=== PATIENT | male | born 1985 | race Asian ===

== ENCOUNTER 2018-01-20 19:54 | Emergency (ER) | payer SELFPAY ==
[~2018-01-20] VITALS: Ht 172.7 cm; Wt 90.9 kg
[~2018-01-20 19:54] MED LIST: NO HOME MEDICATIONS
[2018-01-20 19:55] VITALS: TEMP 98
[2018-01-20] MEDS ORDERED: FLEXERIL 1010 MG/TAB PO (21:27)
[2018-01-20] MEDS ORDERED: IBU600 MG PO (21:29)
[2018-01-20 21:35] VITALS: BP 134/91; PULSE 90
== END 2018-01-20 21:35 | disposition home or self-care (01) ==
LOC: COL.ER 19:54
DX: M54.41 Lumbago with sciatica, right side (principal)
CPT/HCPCS: J1885

== ENCOUNTER 2018-01-21 11:09 | Emergency (ER) | payer SELFPAY ==
[~2018-01-21] VITALS: Ht 183 cm; Wt 90.9 kg
[~2018-01-21 11:09] MED LIST changes: +FLEXERIL 1010 MG/TAB PO; +IBU600 MG PO
[2018-01-21 11:10] VITALS: TEMP 98.6
[2018-01-21 14:17] VITALS: BP 131/99; PULSE 90
== END 2018-01-21 14:17 | disposition home or self-care (01) ==
LOC: COL.ER 11:09
DX: M54.41 Lumbago with sciatica, right side (principal)
CPT/HCPCS: J1885; J2360

== ENCOUNTER 2018-01-22 04:51 | Emergency (ER) | payer SELFPAY ==
[~2018-01-22] VITALS: Ht 172.7 cm; Wt 83.2 kg
[2018-01-22 04:52] VITALS: TEMP 98.1
[2018-01-22 07:25] LABS: BASO # 0.1 (0.0-0.2); BASO % 0.8 % (0.0-2.0); EOS % 0.5 % (0-4.0); GRAN # 5.1 (1.4-6.5); GRAN % 66.7 % (42.2-75.2); HEMATOCRIT 46.8 % (42.0-52.0); HEMOGLOBIN 16.1 g/dl (13.5-18.0); LYMPH # 1.8 (1.2-3.4); LYMPH % 23.3 % (20.0-51.0); MEAN CELL VOLUME 82 fl (80.0-100.0); MEAN CORPUSCULAR HEMOGLOBIN 28 pg (27.0-31.0); MEAN CORPUSCULAR HGB CONC 34 g/dl (33.0-37.0); MEAN PLATELET VOLUME 9.3 fl (7.4-10.4); MONO # 0.7 (0.1-0.6); MONO % 8.4 % (1.7-9.3); PLATELET COUNT 294 K/mm3 (130-400); RED BLOOD COUNT 5.73 M/mm3 (4.20-5.60)
[2018-01-22 09:45] VITALS: BP 128/83; PULSE 95
== END 2018-01-22 10:09 | disposition short-term general hospital (02) ==
LOC: COL.ER 04:51
PROVIDERS: Family Medicine
DX: M51.26 Other intervertebral disc displacement, lumbar region (principal); M48.00 Spinal stenosis, site unspecified
CPT/HCPCS: J7120

== ENCOUNTER 2018-02-09 22:12 | Emergency (ER) | payer SELFPAY ==
[~2018-02-09] VITALS: Ht 183 cm; Wt 94.1 kg
[2018-02-09 22:17] VITALS: TEMP 99
[2018-02-09 23:43] LABS: COLLECTION METHOD CATHETER
[2018-02-09 23:52] LABS: PH 5 (5-8); SQUAMOUS EPITHELIAL None Seen /hpf; URINE APPEARANCE Clear; URINE BACTERIA None Seen /hpf; URINE BILIRUBIN Negative (NEGATIVE); URINE BLOOD 1+ (NEGATIVE); URINE COLOR Yellow; URINE GLUCOSE Negative (NEGATIVE); URINE KETONE Trace (NEGATIVE); URINE LEUKOCYTE ESTERASE Negative (NEGATIVE); URINE NITRATE Negative (NEGATIVE); URINE PROTEIN(semi-quant) Negative (NEGATIVE); URINE UROBILINOGEN Negative (NEGATIVE)
[2018-02-10 00:27] VITALS: BP 125/90; PULSE 95
[2018-02-10] MEDS ORDERED: ZORVOLEX35 MG (04:23)
[2018-02-10] MEDS ORDERED: FLOMAX 0.40.4 MG/CAP PO (04:23)
[2018-02-10] MEDS ORDERED: LEVAQUIN 2250 MG/TAB (04:24)
== END 2018-02-10 00:16 | disposition home or self-care (01) ==
LOC: COL.ER 22:12
PROVIDERS: Nurse Practitioner
DX: R33.9 Retention of urine, unspecified (principal); M54.9 Dorsalgia, unspecified; F17.210 Nicotine dependence, cigarettes, uncomplicated; Z79.1 Long term (current) use of non-steroidal anti-inflammatories (NSAID); Z98.890 Other specified postprocedural states

== ENCOUNTER 2018-03-11 05:41 | Emergency (ER) | payer SELFPAY ==
[~2018-03-11] VITALS: Ht 183 cm; Wt 94.1 kg
[~2018-03-11 05:41] MED LIST changes: +FLOMAX 0.40.4 MG/CAP PO; +LEVAQUIN 2250 MG/TAB; +ZORVOLEX35 MG
[2018-03-11 05:48] VITALS: TEMP 98.4
[2018-03-11 06:39] LABS: BASO # 0.1 (0.0-0.2); BASO % 0.8 % (0.0-2.0); EOS # 0.1 (0.0-0.7); EOS % 1.7 % (0-4.0); GRAN # 5.4 (1.4-6.5); GRAN % 70.6 % (42.2-75.2); HEMATOCRIT 43.4 % (42.0-52.0); HEMOGLOBIN 14.5 g/dl (13.5-18.0); LYMPH # 1.7 (1.2-3.4); LYMPH % 21.5 % (20.0-51.0); MEAN CELL VOLUME 85 fl (80.0-100.0); MEAN CORPUSCULAR HEMOGLOBIN 28 pg (27.0-31.0); MEAN CORPUSCULAR HGB CONC 33 g/dl (33.0-37.0); MEAN PLATELET VOLUME 9.5 fl (7.4-10.4); MONO # 0.4 (0.1-0.6); MONO % 5.1 % (1.7-9.3); PLATELET COUNT 253 K/mm3 (130-400); RED BLOOD COUNT 5.11 M/mm3 (4.20-5.60); REDCELL DISTRIBUTION WIDTH-CV 12.4 % (11.5-14.5)
[2018-03-11 06:52] LABS: C-REACTIVE PROTEIN 0.9 mg/dL (0.0-0.9); CALCIUM 9.3 mg/dL (8.4-10.2); CREATININE, serum 0.89 mg/dL (0.66-1.25); POTASSIUM 3.6 mmol/L (3.4-5.0)
[2018-03-11] MEDS ORDERED: VOLTAREN 50MG T50 MG PO (07:01)
[2018-03-11] MEDS ORDERED: SENOKOT S 50 MG1 TAB PO (07:01)
[2018-03-11] MEDS ORDERED: MOTRIN 600600 MG/TAB PO (07:02)
[2018-03-11 07:06] LABS: ERYTHROCYTE SEDIMENTATION RATE 7 mm/hr (0-15)
[2018-03-11 11:27] VITALS: BP 141/92; PULSE 80
== END 2018-03-11 11:36 | disposition short-term general hospital (02) ==
LOC: COL.ER 05:41
PROVIDERS: Emergency Medicine
DX: M51.17 Intervertebral disc disorders with radiculopathy, lumbosacral region (principal); G62.9 Polyneuropathy, unspecified
CPT/HCPCS: A9585; J1100

== ENCOUNTER 2018-03-27 06:00 | Emergency (ER) | payer SELFPAY ==
[~2018-03-27] VITALS: Ht 183 cm; Wt 94.1 kg
[~2018-03-27 06:00] MED LIST changes: +MOTRIN 600600 MG/TAB PO; +SENOKOT S 50 MG1 TAB PO; +VOLTAREN 50MG T50 MG PO
[2018-03-27 06:05] VITALS: TEMP 98.1
[2018-03-27 07:00] LABS: BASO # 0.1 (0.0-0.2); BASO % 0.7 % (0.0-2.0); EOS # 0.3 (0.0-0.7); EOS % 2.9 % (0-4.0); GRAN % 70.1 % (42.2-75.2); HEMATOCRIT 37.1 % (42.0-52.0); HEMOGLOBIN 12.3 g/dl (13.5-18.0); LYMPH # 1.6 (1.2-3.4); LYMPH % 18.4 % (20.0-51.0); MEAN CELL VOLUME 86 fl (80.0-100.0); MEAN CORPUSCULAR HEMOGLOBIN 29 pg (27.0-31.0); MEAN CORPUSCULAR HGB CONC 33 g/dl (33.0-37.0); MEAN PLATELET VOLUME 9.1 fl (7.4-10.4); MONO # 0.6 (0.1-0.6); MONO % 7.5 % (1.7-9.3); PLATELET COUNT 295 K/mm3 (130-400)
[2018-03-27 07:13] LABS: COLLECTION METHOD CATHETER
[2018-03-27 07:18] LABS: ALBUMIN 4.1 gm/dL (3.5-5.0); BILIRUBIN,TOTAL 0.4 mg/dL (0.0-1.0); C-REACTIVE PROTEIN 2.8 mg/dL (0.0-0.9); CALCIUM 9.3 mg/dL (8.4-10.2); CREATININE, serum 0.87 mg/dL (0.66-1.25); POTASSIUM 3.8 mmol/L (3.4-5.0); TOTAL PROTEIN 7.3 gm/dL (6.4-8.2)
[2018-03-27 07:20] LABS: MUCOUS Present /lpf; PH 5 (5-8); SQUAMOUS EPITHELIAL None Seen /hpf; URINE APPEARANCE Clear; URINE BACTERIA None Seen /hpf; URINE BILIRUBIN Negative (NEGATIVE); URINE BLOOD Negative (NEGATIVE); URINE COLOR Yellow; URINE GLUCOSE Negative (NEGATIVE); URINE KETONE Negative (NEGATIVE); URINE LEUKOCYTE ESTERASE Trace (NEGATIVE); URINE NITRATE Positive (NEGATIVE); URINE PROTEIN(semi-quant) Negative (NEGATIVE); URINE RBC 0-2 /hpf; URINE UROBILINOGEN Negative (NEGATIVE)
[2018-03-27 07:24] LABS: ERYTHROCYTE SEDIMENTATION RATE 43 mm/hr (0-15)
[2018-03-27] MEDS ORDERED: CEPHALEXIN500 M1 PO (08:47)
[2018-03-27 10:59] VITALS: BP 122/80; PULSE 78
== END 2018-03-27 11:33 | disposition home or self-care (01) ==
LOC: COL.ER 06:00
PROVIDERS: Emergency Medicine
DX: M54.5 Low back pain (principal); Z98.890 Other specified postprocedural states
CPT/HCPCS: J0696; J1170; J2405; J7030

== ENCOUNTER 2018-03-29 09:42 | Emergency (ER) | payer SELFPAY ==
[~2018-03-29] VITALS: Ht 183 cm; Wt 94.1 kg
[~2018-03-29 09:42] MED LIST changes: +CEPHALEXIN500 M1 PO
[2018-03-29 09:43] VITALS: BP 113/71; TEMP 97.5
[2018-03-29 13:57] VITALS: PULSE 72
[2018-03-29] MEDS ORDERED: NORCO 325 MG-51 TAB PO (14:02)
== END 2018-03-29 14:10 | disposition home or self-care (01) ==
LOC: COL.ER 09:42
DX: Z48.01 Encounter for change or removal of surgical wound dressing (principal); G89.18 Other acute postprocedural pain; Z79.1 Long term (current) use of non-steroidal anti-inflammatories (NSAID)

== ENCOUNTER 2018-04-06 06:14 | Emergency (ER) | payer SELFPAY ==
[~2018-04-06] VITALS: Ht 183 cm; Wt 94.1 kg
[~2018-04-06 06:14] MED LIST changes: +NORCO 325 MG-51 TAB PO
[2018-04-06 06:15] VITALS: TEMP 96.8
[2018-04-06] MEDS ORDERED: TYLENOL 500MG500 MG PO (06:22)
[2018-04-06 07:23] LABS: BASO # 0.1 (0.0-0.2); BASO % 0.7 % (0.0-2.0); EOS # 0.2 (0.0-0.7); EOS % 3.1 % (0-4.0); GRAN # 4.2 (1.4-6.5); GRAN % 62.5 % (42.2-75.2); LYMPH # 1.7 (1.2-3.4); LYMPH % 24.7 % (20.0-51.0); MEAN CELL VOLUME 87 fl (80.0-100.0); MEAN CORPUSCULAR HEMOGLOBIN 28 pg (27.0-31.0); MEAN CORPUSCULAR HGB CONC 32 g/dl (33.0-37.0); MEAN PLATELET VOLUME 8.9 fl (7.4-10.4); MONO # 0.6 (0.1-0.6); MONO % 8.7 % (1.7-9.3); PLATELET COUNT 319 K/mm3 (130-400); RED BLOOD COUNT 4.25 M/mm3 (4.20-5.60); REDCELL DISTRIBUTION WIDTH-CV 12.7 % (11.5-14.5)
[2018-04-06 07:36] LABS: C-REACTIVE PROTEIN 5.4 mg/dL (0.0-0.9); CALCIUM 9.2 mg/dL (8.4-10.2); CREATININE, serum 0.74 mg/dL (0.66-1.25); POTASSIUM 3.5 mmol/L (3.4-5.0)
[2018-04-06 07:54] LABS: ERYTHROCYTE SEDIMENTATION RATE 33 mm/hr (0-15)
[2018-04-06 08:52] LABS: COLLECTION METHOD CATHETER
[2018-04-06 09:00] LABS: MUCOUS Present /lpf; PH 5 (5-8); SQUAMOUS EPITHELIAL None Seen /hpf; URINE APPEARANCE Clear; URINE BACTERIA None Seen /hpf; URINE BILIRUBIN Negative (NEGATIVE); URINE BLOOD Negative (NEGATIVE); URINE COLOR Yellow; URINE GLUCOSE Negative (NEGATIVE); URINE KETONE Negative (NEGATIVE); URINE LEUKOCYTE ESTERASE Negative (NEGATIVE); URINE NITRATE Negative (NEGATIVE); URINE PROTEIN(semi-quant) Negative (NEGATIVE); URINE RBC 0-2 /hpf; URINE UROBILINOGEN Negative (NEGATIVE)
[2018-04-06 10:26] VITALS: BP 119/85; PULSE 103
== END 2018-04-06 10:27 | disposition home or self-care (01) ==
LOC: COL.ER 06:14
PROVIDERS: Emergency Medicine
DX: G89.18 Other acute postprocedural pain (principal); M54.5 Low back pain; Z98.890 Other specified postprocedural states
CPT/HCPCS: G8978-GP; G8979-GP; J3010

== ENCOUNTER 2018-04-06 13:22 | Observation (INO) | payer SELFPAY ==
[~2018-04-06] VITALS: Ht 172.7 cm; Wt 89.1 kg
[~2018-04-06 13:22] MED LIST changes: +TYLENOL 500MG500 MG PO
[2018-04-06 16:41] VITALS: BP 110/70; PULSE 84; TEMP 97.5
[2018-04-06 18:59] VITALS: BP 113/66; PULSE 81; TEMP 97.9
[2018-04-06 23:05] VITALS: BP 126/70; PULSE 100; TEMP 98.7
[2018-04-07 03:03] VITALS: BP 118/73; PULSE 90
[2018-04-07 03:07] VITALS: TEMP 98.2
[2018-04-07 07:55] VITALS: BP 117/77; PULSE 97; TEMP 99.2
[2018-04-07 11:39] VITALS: BP 118/76; PULSE 96; TEMP 99.1
[2018-04-07 16:53] VITALS: BP 130/71; PULSE 114; TEMP 98.4
[2018-04-07 19:45] VITALS: BP 113/61; PULSE 100; TEMP 98.5
[2018-04-08 00:17] VITALS: BP 115/72; PULSE 99; TEMP 98.6
[2018-04-08 04:51] VITALS: BP 128/73; PULSE 116; TEMP 98.5
[2018-04-08 07:08] LABS: BASO % 0.5 % (0.0-2.0); EOS # 0.2 (0.0-0.7); EOS % 2.8 % (0-4.0); GRAN # 3.7 (1.4-6.5); GRAN % 60.8 % (42.2-75.2); HEMOGLOBIN 10.6 g/dl (13.5-18.0); LYMPH # 1.7 (1.2-3.4); LYMPH % 27.5 % (20.0-51.0); MEAN CELL VOLUME 87 fl (80.0-100.0); MEAN CORPUSCULAR HEMOGLOBIN 29 pg (27.0-31.0); MEAN CORPUSCULAR HGB CONC 33 g/dl (33.0-37.0); MEAN PLATELET VOLUME 9.5 fl (7.4-10.4); MONO # 0.5 (0.1-0.6); MONO % 8.1 % (1.7-9.3); PLATELET COUNT 307 K/mm3 (130-400); RED BLOOD COUNT 3.72 M/mm3 (4.20-5.60); REDCELL DISTRIBUTION WIDTH-CV 12.5 % (11.5-14.5)
[2018-04-08 07:11] LABS: HEMATOCRIT 32.4 % (42.0-52.0)
[2018-04-08 07:13] VITALS: BP 130/70; PULSE 98; TEMP 98.7
[2018-04-08 07:17] LABS: CREATININE, serum 0.71 mg/dL (0.66-1.25); POTASSIUM 3.4 mmol/L (3.4-5.0)
[2018-04-08] MEDS ORDERED: NORCO 325 MG-51 TAB PO (11:37)
[2018-04-08] MEDS ORDERED: FLEXERIL 1010 MG/TAB PO (11:37)
[2018-04-08 12:13] VITALS: BP 118/76; PULSE 103; TEMP 98.6
== END 2018-04-08 14:58 | disposition home or self-care (01) ==
LOC: COL.ER 13:22 → MEDICAL 13:27
PROVIDERS: Physician Assistant
DX: M46.26 Osteomyelitis of vertebra, lumbar region (principal); M46.46 Discitis, unspecified, lumbar region; R33.9 Retention of urine, unspecified
CPT/HCPCS: 99222-AI; 99231-AI; A9585; G0008; G0378; G8978-GP; G8979-GP; G8987-GO; G8988-GO; J1170; J1644; J7030

== ENCOUNTER 2018-04-17 16:07 | Emergency (ER) | payer SELFPAY ==
[~2018-04-17] VITALS: Ht 183 cm; Wt 94.1 kg
[2018-04-17 16:12] VITALS: TEMP 98
[2018-04-17] MEDS ORDERED: COLACE 100100 MG/CAP PO (16:22)
[2018-04-17 16:48] LABS: BASO # 0.1 (0.0-0.2); BASO % 0.9 % (0.0-2.0); EOS # 0.2 (0.0-0.7); EOS % 1.7 % (0-4.0); GRAN # 6.6 (1.4-6.5); GRAN % 70.6 % (42.2-75.2); HEMATOCRIT 37.6 % (42.0-52.0); HEMOGLOBIN 12.7 g/dl (13.5-18.0); LYMPH # 1.8 (1.2-3.4); LYMPH % 19.1 % (20.0-51.0); MEAN CELL VOLUME 84 fl (80.0-100.0); MEAN CORPUSCULAR HEMOGLOBIN 28 pg (27.0-31.0); MEAN CORPUSCULAR HGB CONC 34 g/dl (33.0-37.0); MEAN PLATELET VOLUME 8.8 fl (7.4-10.4); MONO # 0.7 (0.1-0.6); MONO % 7.3 % (1.7-9.3); PLATELET COUNT 423 K/mm3 (130-400); RED BLOOD COUNT 4.47 M/mm3 (4.20-5.60)
[2018-04-17] MEDS ORDERED: NAPROSYN 2250 MG/TAB PO (16:53)
[2018-04-17] MEDS ORDERED: NORCO 325 MG-51 TAB PO (16:53)
[2018-04-17 17:10] LABS: C-REACTIVE PROTEIN 6.2 mg/dL (0.0-0.9); CALCIUM 9.8 mg/dL (8.4-10.2); CREATININE, serum 0.9 mg/dL (0.66-1.25); POTASSIUM 3.9 mmol/L (3.4-5.0)
[2018-04-17 17:16] LABS: COLLECTION METHOD CATHETER
[2018-04-17 17:23] LABS: MUCOUS Present /lpf; PH 7 (5-8); SQUAMOUS EPITHELIAL 0-2 /hpf; URINE APPEARANCE Hazy; URINE BACTERIA Rare /hpf; URINE BILIRUBIN Negative (NEGATIVE); URINE BLOOD 1+ (NEGATIVE); URINE COLOR Amber; URINE GLUCOSE Negative (NEGATIVE); URINE KETONE 1+ (NEGATIVE); URINE LEUKOCYTE ESTERASE 2+ (NEGATIVE); URINE NITRATE Negative (NEGATIVE); URINE PROTEIN(semi-quant) 2+ (NEGATIVE); URINE RBC 20-50 /hpf; URINE UROBILINOGEN >=4.0 mg/dL (NEGATIVE)
[2018-04-17 18:50] VITALS: BP 111/69; PULSE 104
[2018-04-18] MEDS ORDERED: CIPRO 500MG TA500 MG PO (14:52)
== END 2018-04-17 19:10 | disposition home or self-care (01) ==
LOC: COL.ER 16:07
PROVIDERS: Emergency Medicine
DX: M54.5 Low back pain (principal); Z91.14 Patient's other noncompliance with medication regimen
CPT/HCPCS: J1885; J7030

== ENCOUNTER 2018-05-04 10:32 | Emergency (ER) | payer SELFPAY ==
[~2018-05-04] VITALS: Ht 183 cm; Wt 90.9 kg
[~2018-05-04 10:32] MED LIST changes: +CIPRO 500MG TA500 MG PO; +COLACE 100100 MG/CAP PO; +NAPROSYN 2250 MG/TAB PO
[2018-05-04 10:44] VITALS: TEMP 98.2
[2018-05-04 12:10] LABS: BASO # 0.1 (0.0-0.2); BASO % 0.9 % (0.0-2.0); EOS # 0.2 (0.0-0.7); EOS % 1.4 % (0-4.0); GRAN # 8.2 (1.4-6.5); GRAN % 73.8 % (42.2-75.2); HEMATOCRIT 40.1 % (42.0-52.0); HEMOGLOBIN 12.9 g/dl (13.5-18.0); LYMPH % 17.7 % (20.0-51.0); MEAN CELL VOLUME 84 fl (80.0-100.0); MEAN CORPUSCULAR HEMOGLOBIN 27 pg (27.0-31.0); MEAN CORPUSCULAR HGB CONC 32 g/dl (33.0-37.0); MEAN PLATELET VOLUME 8.9 fl (7.4-10.4); MONO # 0.6 (0.1-0.6); MONO % 5.7 % (1.7-9.3); PLATELET COUNT 339 K/mm3 (130-400); RED BLOOD COUNT 4.78 M/mm3 (4.20-5.60); REDCELL DISTRIBUTION WIDTH-CV 12.6 % (11.5-14.5)
[2018-05-04 12:16] LABS: INR 1.1 (0.8-3.0); PROTHROMBIN TIME 12.6 SECONDS (9.7-12.8)
[2018-05-04 12:21] LABS: ALANINE AMINOTRANSFERASE 34 U/L (21-72); ALBUMIN 4.3 gm/dL (3.5-5.0); ALKALINE PHOSPHATASE 95 U/L (50-136); ANION GAP 10 mmol/L (7-16); AST,SGOT 21 U/L (15-37); BILIRUBIN,TOTAL 0.8 mg/dL (0.0-1.0); BLOOD UREA NITROGEN 20 mg/dL (9-20); CARBON DIOXIDE 28 mmol/L (22-30); CHLORIDE 105 mmol/L (98-107); CREATININE, serum 0.91 mg/dL (0.66-1.25); GLUCOSE 97 mg/dL (74-106); POTASSIUM 3.5 mmol/L (3.4-5.0); SODIUM 142 mmol/L (137-145)
[2018-05-04 12:33] LABS: TROPONIN-I < 0.012 ng/mL (0.000-0.034)
[2018-05-04] MEDS ORDERED: OMNICEF 300MG300 MG PO (14:07)
[2018-05-04 14:23] LABS: COLLECTION METHOD CATHETER
[2018-05-04 14:34] LABS: MUCOUS Present /lpf; PH 5 (5-8); SQUAMOUS EPITHELIAL 0-2 /hpf; URINE APPEARANCE Clear; URINE BACTERIA None Seen /hpf; URINE BILIRUBIN Negative (NEGATIVE); URINE BLOOD 3+ (NEGATIVE); URINE COLOR Yellow; URINE GLUCOSE Negative (NEGATIVE); URINE KETONE 1+ (NEGATIVE); URINE LEUKOCYTE ESTERASE 2+ (NEGATIVE); URINE NITRATE Negative (NEGATIVE); URINE PROTEIN(semi-quant) Negative (NEGATIVE); URINE RBC >50 /hpf; URINE UROBILINOGEN Negative (NEGATIVE); URINE WBC >50 /hpf
[2018-05-04 14:41] VITALS: BP 137/92; PULSE 110
== END 2018-05-04 14:50 | disposition home or self-care (01) ==
LOC: COL.ER 10:32
PROVIDERS: Emergency Medicine
DX: R00.0 Tachycardia, unspecified (principal); N39.0 Urinary tract infection, site not specified
CPT/HCPCS: A4216; J0696; J7030; Q9967

== ENCOUNTER 2018-05-23 03:39 | Emergency (ER) | payer SELFPAY ==
[~2018-05-23] VITALS: Ht 183 cm; Wt 90.9 kg
[~2018-05-23 03:39] MED LIST changes: +OMNICEF 300MG300 MG PO
[2018-05-23 04:39] LABS: BASO % 0.1 % (0.0-2.0); EOS # 0.1 (0.0-0.7); EOS % 0.9 % (0-4.0); GRAN # 5.5 (1.4-6.5); GRAN % 69.3 % (42.2-75.2); HEMATOCRIT 38.1 % (42.0-52.0); HEMOGLOBIN 12.5 g/dl (13.5-18.0); LYMPH # 1.7 (1.2-3.4); LYMPH % 21.5 % (20.0-51.0); MEAN CELL VOLUME 82 fl (80.0-100.0); MEAN CORPUSCULAR HEMOGLOBIN 27 pg (27.0-31.0); MEAN CORPUSCULAR HGB CONC 33 g/dl (33.0-37.0); MEAN PLATELET VOLUME 9.5 fl (7.4-10.4); MONO # 0.6 (0.1-0.6); MONO % 7.9 % (1.7-9.3); PLATELET COUNT 260 K/mm3 (130-400); RED BLOOD COUNT 4.66 M/mm3 (4.20-5.60)
[2018-05-23 04:55] LABS: COLLECTION METHOD CATHETER
[2018-05-23 04:57] LABS: ALBUMIN 4.2 gm/dL (3.5-5.0); BILIRUBIN,TOTAL 0.6 mg/dL (0.0-1.0); C-REACTIVE PROTEIN 5.1 mg/dL (0.0-0.9); CALCIUM 9.1 mg/dL (8.4-10.2); CREATININE, serum 0.98 mg/dL (0.66-1.25); MAGNESIUM 1.5 mg/dL (1.6-2.3); POTASSIUM 3.5 mmol/L (3.4-5.0); TOTAL PROTEIN 7.6 gm/dL (6.4-8.2)
[2018-05-23] MEDS ORDERED: COLACE 100100 MG/CAP PO (05:04)
[2018-05-23] MEDS ORDERED: BACTRIM DS 8001 TAB PO (05:04)
[2018-05-23 05:12] LABS: MUCOUS Present /lpf; PH 6 (5-8); SQUAMOUS EPITHELIAL None Seen /hpf; URINE APPEARANCE Clear; URINE BACTERIA None Seen /hpf; URINE BILIRUBIN Negative (NEGATIVE); URINE BLOOD Negative (NEGATIVE); URINE COLOR Yellow; URINE GLUCOSE Negative (NEGATIVE); URINE KETONE Negative (NEGATIVE); URINE LEUKOCYTE ESTERASE Negative (NEGATIVE); URINE NITRATE Negative (NEGATIVE); URINE PROTEIN(semi-quant) Negative (NEGATIVE); URINE RBC 0-2 /hpf; URINE UROBILINOGEN Negative (NEGATIVE)
[2018-05-23 07:44] VITALS: BP 112/67; PULSE 98; TEMP 96.8
== END 2018-05-23 08:20 | disposition home or self-care (01) ==
LOC: COL.ER 03:39
PROVIDERS: Emergency Medicine
DX: R53.81 Other malaise (principal); G83.4 Cauda equina syndrome; Z98.890 Other specified postprocedural states
CPT/HCPCS: J1885; J3475; J7030

== ENCOUNTER 2018-09-03 10:47 | Emergency (ER) | payer SELFPAY ==
[~2018-09-03] VITALS: Ht 183 cm; Wt 90.9 kg
[~2018-09-03 10:47] MED LIST changes: +BACTRIM DS 8001 TAB PO
[2018-09-03 10:48] VITALS: TEMP 97.2
[2018-09-03 12:47] VITALS: BP 129/91; PULSE 79
== END 2018-09-03 12:52 | disposition home or self-care (01) ==
LOC: COL.ER 10:47
DX: R33.9 Retention of urine, unspecified (principal)

== ENCOUNTER 2019-05-06 01:17 | Emergency (ER) | payer SELFPAY ==
[~2019-05-06] VITALS: Ht 183 cm; Wt 90.9 kg
[2019-05-06 02:28] LABS: COLLECTION METHOD IN
[2019-05-06 02:33] LABS: MUCOUS Present /lpf; PH 5 (5-8); SQUAMOUS EPITHELIAL None Seen /hpf; URINE APPEARANCE Clear; URINE BACTERIA Rare /hpf; URINE BILIRUBIN Negative (NEGATIVE); URINE BLOOD 3+ (NEGATIVE); URINE COLOR Yellow; URINE GLUCOSE Negative (NEGATIVE); URINE KETONE Negative (NEGATIVE); URINE LEUKOCYTE ESTERASE 1+ (NEGATIVE); URINE NITRATE Negative (NEGATIVE); URINE PROTEIN(semi-quant) Negative (NEGATIVE); URINE RBC >50 /hpf; URINE UROBILINOGEN Negative (NEGATIVE)
[2019-05-06] MEDS ORDERED: DULCOLAX STOOL100 MG PO (02:44)
[2019-05-06] MEDS ORDERED: CIPRO 500MG TA500 MG PO (02:54)
[2019-05-06 03:00] VITALS: BP 136/101; PULSE 98; TEMP 98.1
[2019-05-08] MEDS ORDERED: MACRODANTIN100 PO (13:23)
== END 2019-05-06 03:10 | disposition home or self-care (01) ==
LOC: COL.ER 01:17
PROVIDERS: Emergency Medicine
DX: N39.0 Urinary tract infection, site not specified (principal)

== ENCOUNTER 2019-11-16 09:36 | Emergency (ER) | payer SELFPAY ==
[~2019-11-16] VITALS: Ht 183 cm; Wt 95.5 kg
[~2019-11-16 09:36] MED LIST changes: +DULCOLAX STOOL100 MG PO; +MACRODANTIN100 PO
[2019-11-16 09:39] VITALS: TEMP 98.1
[2019-11-16 10:21] LABS: BASO # 0.1 (0.0-0.2); BASO % 0.9 % (0.0-2.0); EOS # 0.1 (0.0-0.7); GRAN # 8.5 (1.4-6.5); GRAN % 81.5 % (42.2-75.2); HEMATOCRIT 48.5 % (42.0-52.0); HEMOGLOBIN 16.5 g/dl (13.5-18.0); LYMPH # 1.3 (1.2-3.4); LYMPH % 12.5 % (20.0-51.0); MEAN CELL VOLUME 84 fl (80.0-100.0); MEAN CORPUSCULAR HEMOGLOBIN 29 pg (27.0-31.0); MEAN CORPUSCULAR HGB CONC 34 g/dl (33.0-37.0); MEAN PLATELET VOLUME 9.2 fl (7.4-10.4); MONO # 0.4 (0.1-0.6); MONO % 3.8 % (1.7-9.3); PLATELET COUNT 346 K/mm3 (130-400); RED BLOOD COUNT 5.79 M/mm3 (4.20-5.60); REDCELL DISTRIBUTION WIDTH-CV 12.2 % (11.5-14.5)
[2019-11-16 10:33] LABS: ALBUMIN 4.7 gm/dL (3.5-5.0); C-REACTIVE PROTEIN 1.5 mg/dL (0.0-0.9); CALCIUM 9.6 mg/dL (8.4-10.2); CREATININE, serum 0.98 (0.66-1.25); POTASSIUM 3.5 mmol/L (3.4-5.0); TOTAL PROTEIN 8.3 gm/dL (6.4-8.2)
[2019-11-16 10:57] LABS: COLLECTION METHOD IN
[2019-11-16 11:35] LABS: GRANULAR CAST >12 /lpf; MUCOUS Present /lpf; PH 6 (5-8); SQUAMOUS EPITHELIAL None Seen /hpf; URINE APPEARANCE Hazy; URINE BACTERIA None Seen /hpf; URINE BILIRUBIN Negative (NEGATIVE); URINE BLOOD 3+ (NEGATIVE); URINE COLOR Yellow; URINE GLUCOSE Negative (NEGATIVE); URINE KETONE Negative (NEGATIVE); URINE LEUKOCYTE ESTERASE 2+ (NEGATIVE); URINE NITRATE Negative (NEGATIVE); URINE PROTEIN(semi-quant) 1+ (NEGATIVE); URINE RBC >50 /hpf; URINE UROBILINOGEN Negative (NEGATIVE)
[2019-11-16] MEDS ORDERED: AMOXICILLIN 8751 TAB PO (11:37)
[2019-11-16 12:03] VITALS: BP 135/96; PULSE 105
[2019-11-18] MEDS ORDERED: CIPRO 500MG TA500 MG PO (11:36)
== END 2019-11-16 11:57 | disposition home or self-care (01) ==
LOC: COL.ER 09:36
PROVIDERS: Emergency Medicine
DX: N30.90 Cystitis, unspecified without hematuria (principal); Z86.69 Personal history of other diseases of the nervous system and sense organs
CPT/HCPCS: J2543; J7030

== ENCOUNTER 2019-11-17 21:12 | Emergency (ER) | payer SELFPAY ==
[~2019-11-17] VITALS: Ht 183 cm; Wt 90.9 kg
[~2019-11-17 21:12] MED LIST changes: +AMOXICILLIN 8751 TAB PO
[2019-11-17 21:17] VITALS: BP 162/108; TEMP 98.6
[2019-11-17 22:01] VITALS: PULSE 110
[2019-11-18] MEDS ORDERED: CIPRO 500MG TA500 MG PO (11:36)
== END 2019-11-17 22:01 | disposition home or self-care (01) ==
LOC: COL.ER 21:12
DX: R05 Cough (principal); N39.0 Urinary tract infection, site not specified

== ENCOUNTER 2020-03-20 04:41 | Emergency (ER) | payer SELFPAY ==
[~2020-03-20] VITALS: Ht 183 cm; Wt 90.9 kg
[2020-03-20 04:48] VITALS: TEMP 98.3
[2020-03-20 05:58] LABS: COLLECTION METHOD CATHETER
[2020-03-20 06:24] LABS: MUCOUS Present /lpf; PH 5 (5-8); SQUAMOUS EPITHELIAL 0-2 /hpf; URINE APPEARANCE Hazy; URINE BACTERIA None Seen /hpf; URINE BILIRUBIN Negative (NEGATIVE); URINE BLOOD 3+ (NEGATIVE); URINE COLOR Yellow; URINE GLUCOSE Negative (NEGATIVE); URINE KETONE Negative (NEGATIVE); URINE LEUKOCYTE ESTERASE Trace (NEGATIVE); URINE NITRATE Negative (NEGATIVE); URINE PROTEIN(semi-quant) Negative (NEGATIVE); URINE RBC >50 /hpf; URINE UROBILINOGEN Negative (NEGATIVE)
[2020-03-20] MEDS ORDERED: CIPRO 500MG TA500 MG PO (06:41)
[2020-03-20 07:06] VITALS: BP 156/107; PULSE 94
== END 2020-03-20 07:10 | disposition home or self-care (01) ==
LOC: COL.ER 04:41
PROVIDERS: Emergency Medicine
DX: N39.0 Urinary tract infection, site not specified (principal); R33.9 Retention of urine, unspecified

== ENCOUNTER 2020-06-04 17:47 | Emergency (ER) | payer SELFPAY ==
[~2020-06-04] VITALS: Ht 183 cm; Wt 86.4 kg
[2020-06-04 17:48] VITALS: TEMP 98.4
[2020-06-04 18:59] LABS: BASO # 0.1 (0.0-0.2); BASO % 0.8 % (0.0-2.0); EOS # 0.1 (0.0-0.7); EOS % 0.6 % (0-4.0); GRAN # 7.6 (1.4-6.5); GRAN % 80.9 % (42.2-75.2); HEMATOCRIT 50.2 % (42.0-52.0); HEMOGLOBIN 17.4 g/dl (13.5-18.0); LYMPH # 1.3 (1.2-3.4); LYMPH % 13.5 % (20.0-51.0); MEAN CELL VOLUME 81 fl (80.0-100.0); MEAN CORPUSCULAR HEMOGLOBIN 28 pg (27.0-31.0); MEAN CORPUSCULAR HGB CONC 35 g/dl (33.0-37.0); MEAN PLATELET VOLUME 9.1 fl (7.4-10.4); MONO # 0.4 (0.1-0.6); PLATELET COUNT 345 K/mm3 (130-400); RED BLOOD COUNT 6.19 M/mm3 (4.20-5.60); REDCELL DISTRIBUTION WIDTH-CV 12.4 % (11.5-14.5)
[2020-06-04 19:13] LABS: ALANINE AMINOTRANSFERASE 56 U/L (4-49); ALBUMIN 4.9 gm/dL (3.5-5.0); ALKALINE PHOSPHATASE 113 U/L (50-136); ANION GAP 11 mmol/L (7-16); AST,SGOT 28 U/L (15-37); BILIRUBIN,TOTAL 1.3 mg/dL (0.0-1.0); BLOOD UREA NITROGEN 14 mg/dL (9-20); C-REACTIVE PROTEIN 1.3 mg/dL (0.0-0.9); CALCIUM 9.7 mg/dL (8.4-10.2); CARBON DIOXIDE 27 mmol/L (22-30); CHLORIDE 102 mmol/L (98-107); CREATININE, serum 0.91 (0.66-1.25); GLUCOSE 124 mg/dL (74-106); SODIUM 139 mmol/L (137-145); TOTAL PROTEIN 8.5 gm/dL (6.4-8.2)
[2020-06-04 19:23] LABS: TROPONIN-I < 0.012 ng/mL (0.000-0.035)
[2020-06-04 19:48] LABS: COLLECTION METHOD CATHETER
[2020-06-04 19:54] LABS: BUDDING YEAST Present /hpf; PH 5 (5-8); SQUAMOUS EPITHELIAL 0-2 /hpf; URINE APPEARANCE Cloudy; URINE BACTERIA Many /hpf; URINE BILIRUBIN Negative (NEGATIVE); URINE BLOOD 2+ (NEGATIVE); URINE COLOR Yellow; URINE GLUCOSE Negative (NEGATIVE); URINE KETONE Negative (NEGATIVE); URINE LEUKOCYTE ESTERASE 3+ (NEGATIVE); URINE NITRATE Positive (NEGATIVE); URINE PROTEIN(semi-quant) Negative (NEGATIVE); URINE UROBILINOGEN Negative (NEGATIVE)
[2020-06-04] MEDS ORDERED: OMNICEF 300MG300 MG PO (21:18)
[2020-06-04 22:04] VITALS: BP 148/95; PULSE 94
== END 2020-06-04 22:20 | disposition home or self-care (01) ==
LOC: COL.ER 17:47
PROVIDERS: Nurse Practitioner Primary Care
DX: T83.511A Infection and inflammatory reaction due to indwelling urethral catheter, initial encounter (principal); Z20.822 Contact with and (suspected) exposure to COVID-19; Y84.6 Urinary catheterization as the cause of abnormal reaction of the patient, or of later complication, without mention of misadventure at the time of the procedure
CPT/HCPCS: J0696; J7030

== ENCOUNTER 2020-11-01 00:05 | Emergency (ER) | payer SELFPAY ==
[~2020-11-01] VITALS: Ht 183 cm; Wt 86.4 kg
[2020-11-01 00:08] VITALS: TEMP 97
[2020-11-01] MEDS ORDERED: ANTIVERT 25MG25 MG PO (01:54)
[2020-11-01 01:59] VITALS: BP 141/99; PULSE 115
[2020-11-27] MEDS ORDERED: BACTRIM DS 8001 TAB PO (13:54)
== END 2020-11-01 02:03 | disposition home or self-care (01) ==
LOC: COL.ER 00:05
DX: H81.10 Benign paroxysmal vertigo, unspecified ear (principal)

== ENCOUNTER 2020-11-26 03:34 | Emergency (ER) | payer SELFPAY ==
[~2020-11-26] VITALS: Ht 183 cm; Wt 86.4 kg
[~2020-11-26 03:34] MED LIST changes: +ANTIVERT 25MG25 MG PO
[2020-11-26 03:36] VITALS: TEMP 98.5
[2020-11-26 04:02] LABS: COLLECTION METHOD CATHETER
[2020-11-26 04:11] LABS: AMORPHOUS CRYSTAL Present /uL; MUCOUS Present /lpf; PH 6 (5-8); SQUAMOUS EPITHELIAL 0-2 /hpf; URINE APPEARANCE Cloudy; URINE BACTERIA Occasional /hpf; URINE BILIRUBIN Negative (NEGATIVE); URINE BLOOD 3+ (NEGATIVE); URINE COLOR Yellow; URINE GLUCOSE Negative (NEGATIVE); URINE KETONE Negative (NEGATIVE); URINE LEUKOCYTE ESTERASE 3+ (NEGATIVE); URINE NITRATE Positive (NEGATIVE); URINE PROTEIN(semi-quant) Negative (NEGATIVE); URINE RBC >50 /hpf; URINE UROBILINOGEN Negative (NEGATIVE)
[2020-11-26 04:14] LABS: BASO # 0.1 (0.0-0.2); BASO % 1.3 % (0.0-2.0); EOS # 0.3 (0.0-0.7); EOS % 3.2 % (0-4.0); GRAN # 4.5 (1.4-6.5); HEMOGLOBIN 15.4 g/dl (13.5-18.0); LYMPH # 2.8 (1.2-3.4); LYMPH % 33.9 % (20.0-51.0); MEAN CELL VOLUME 84 fl (80.0-100.0); MEAN CORPUSCULAR HEMOGLOBIN 28 pg (27.0-31.0); MEAN CORPUSCULAR HGB CONC 34 g/dl (33.0-37.0); MEAN PLATELET VOLUME 9.1 fl (7.4-10.4); MONO # 0.6 (0.1-0.6); MONO % 7.1 % (1.7-9.3); PLATELET COUNT 294 K/mm3 (130-400); RED BLOOD COUNT 5.48 M/mm3 (4.20-5.60); REDCELL DISTRIBUTION WIDTH-CV 12.5 % (11.5-14.5)
[2020-11-26 04:27] LABS: BILIRUBIN,TOTAL 0.6 mg/dL (0.0-1.0); CALCIUM 9.2 mg/dL (8.4-10.2); CREATININE, serum 0.76 (0.66-1.25); POTASSIUM 3.5 mmol/L (3.4-5.0); TOTAL PROTEIN 7.1 gm/dL (6.4-8.2)
[2020-11-26] MEDS ORDERED: NORVASC 5MG5 MG/TAB PO (05:29)
[2020-11-26] MEDS ORDERED: ANTIVERT 25MG25 MG PO (05:29)
[2020-11-26 05:56] VITALS: BP 168/99; PULSE 91
--- NOTE | 2020-11-27 09:52 | NUR ---
recycling worker contacted Dr Hernandez's office and confirmed that he is not patient's primary care provider. Worker left message on patient's phone to call regarding resources to assist with ashby catheter. Emergency room staff states patient has not changed his catheter in 2 months. Patient shows to not have health insurance. Will await patient's return phone call to assess and assist with possible resources. For patient to be eligible for home health services, he would need to be home bound and have health insurance.
[2020-11-27] MEDS ORDERED: BACTRIM DS 8001 TAB PO (13:54)
== END 2020-11-26 05:56 | disposition home or self-care (01) ==
LOC: COL.ER 03:34
PROVIDERS: Personal Emergency Response Attendant
DX: I10 Essential (primary) hypertension (principal); R42 Dizziness and giddiness
CPT/HCPCS: J0360; J0696; J2550; J7030

== ENCOUNTER 2020-12-10 22:35 | Emergency (ER) | payer SELFPAY ==
[~2020-12-10] VITALS: Ht 182.9 cm; Wt 86.4 kg
[~2020-12-10 22:35] MED LIST changes: +NORVASC 5MG5 MG/TAB PO
[2020-12-10 22:37] VITALS: TEMP 97.2
[2020-12-10 23:31] LABS: BASO # 0.1 (0.0-0.2); BASO % 1.4 % (0.0-2.0); EOS # 0.2 (0.0-0.7); EOS % 3.2 % (0-4.0); GRAN % 63.4 % (42.2-75.2); HEMATOCRIT 46.3 % (42.0-52.0); HEMOGLOBIN 15.7 g/dl (13.5-18.0); LYMPH # 1.6 (1.2-3.4); LYMPH % 26.2 % (20.0-51.0); MEAN CELL VOLUME 82 fl (80.0-100.0); MEAN CORPUSCULAR HEMOGLOBIN 28 pg (27.0-31.0); MEAN CORPUSCULAR HGB CONC 34 g/dl (33.0-37.0); MONO # 0.3 (0.1-0.6); MONO % 5.5 % (1.7-9.3); PLATELET COUNT 308 K/mm3 (130-400); RED BLOOD COUNT 5.64 M/mm3 (4.20-5.60); REDCELL DISTRIBUTION WIDTH-CV 12.5 % (11.5-14.5)
[2020-12-10 23:40] LABS: ALANINE AMINOTRANSFERASE 65 U/L (4-49); ALBUMIN 4.3 gm/dL (3.5-5.0); ALKALINE PHOSPHATASE 87 U/L (50-136); ANION GAP 5 mmol/L (7-16); AST,SGOT 39 U/L (15-37); BLOOD UREA NITROGEN 11 mg/dL (9-20); CARBON DIOXIDE 26 mmol/L (22-30); CHLORIDE 106 mmol/L (98-107); GLUCOSE 120 mg/dL (74-106); POTASSIUM 3.6 mmol/L (3.4-5.0); SODIUM 138 mmol/L (137-145); TOTAL PROTEIN 7.7 gm/dL (6.4-8.2)
[2020-12-10 23:53] LABS: TROPONIN-I < 0.012 ng/mL (0.000-0.035)
[2020-12-11 01:07] VITALS: BP 141/91; PULSE 100
--- NOTE | 2020-12-11 11:40 | NUR ---
SW called patient to check on patient after recent ED visit. Patient stated that he was doing fine, but wanted to know about medications. SW informed patient that he should follow up with his PCP to obtain further information in regards to his medications. Patient stated that he had no further concerns about his visit or care. Nothing further.
== END 2020-12-11 01:09 | disposition home or self-care (01) ==
LOC: COL.ER 22:35
PROVIDERS: Emergency Medicine
DX: R42 Dizziness and giddiness (principal); I10 Essential (primary) hypertension; Z79.899 Other long term (current) drug therapy
CPT/HCPCS: J2765; J7030

== ENCOUNTER 2020-12-13 23:25 | Emergency (ER) | payer SELFPAY ==
[~2020-12-13] VITALS: Ht 183 cm; Wt 86.4 kg
[2020-12-13 23:42] VITALS: TEMP 97.2
[2020-12-14] MEDS ORDERED: ANTIVERT 25MG25 MG PO (01:45)
[2020-12-14 02:52] VITALS: BP 136/70; PULSE 78
== END 2020-12-14 02:18 | disposition home or self-care (01) ==
LOC: COL.ER 23:25
DX: R42 Dizziness and giddiness (principal)